=== PATIENT | male | born 1980 | race Caucasian/White ===

== ENCOUNTER 2017-03-30 15:57 | Emergency (ER) | payer MEDICAID ==
[~2017-03-30] VITALS: Ht 182.9 cm; Wt 82.0 kg
[2017-03-30 15:59] VITALS: BP 131/78; PULSE 80; RESP 18; TEMP 98.2; O2SAT 97
[2017-03-30] MEDS ORDERED: IBUP-232 PO (16:20)
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
== END 2017-03-30 16:40 | disposition home or self-care (01) ==
LOC: NEPK 15:57
DX: M54.5 Low back pain (principal); G89.29 Other chronic pain; Z72.0 Tobacco use
CPT/HCPCS: 99283